=== PATIENT | female | born 1955 | race Caucasian/White ===

== ENCOUNTER 2023-09-07 12:51 | Outpatient (CLI) | payer MEDICARE, SELFPAY | END 2023-09-07 12:52 | disposition home or self-care (01) | PROVIDERS: Visit Provider Emergency Medicine | DX: Z00.00 Encounter for general adult medical examination without abnormal findings (principal); R16.0 Hepatomegaly, not elsewhere classified; Z13.1 Encounter for screening for diabetes mellitus | CPT/HCPCS: 80048; 80076 ==

== ENCOUNTER 2023-09-23 12:13 | Outpatient (CLI) | payer MEDICARE, SELFPAY ==
--- NOTE | 2023-09-23 13:35 | W.ANESCHARGE ---
Anesthesia Charges Start Date/Time Anesthesia Start Date: 09/23/23 Anesthesia Start Time: 13:02 Stop Date/Time Anesthesia Stop Date: 09/23/23 Anesthesia Stop Time: 13:35
--- NOTE | 2023-09-23 15:40 | W.ANESCHARGE ---
Anesthesia Charges Start Date/Time Anesthesia Start Date: 09/23/23 Anesthesia Start Time: 13:02 Stop Date/Time Anesthesia Stop Date: 09/23/23 Anesthesia Stop Time: 13:35
== END 2023-09-23 12:14 | disposition home or self-care (01) ==
LOC: OP CLINIC 12:14
PROVIDERS: PCP Emergency Medicine; Visit Provider Surgery
DX: Z12.11 Encounter for screening for malignant neoplasm of colon (principal); K63.5 Polyp of colon; Z80.0 Family history of malignant neoplasm of digestive organs
CPT/HCPCS: 00811; 45385; 88305; J2704

== ENCOUNTER 2023-10-13 11:33 | Outpatient (CLI) | payer MEDICARE, SELFPAY | END 2023-10-13 11:34 | disposition home or self-care (01) | PROVIDERS: PCP Emergency Medicine; Visit Provider Emergency Medicine | DX: Z11.59 Encounter for screening for other viral diseases (principal); Z13.220 Encounter for screening for lipoid disorders | CPT/HCPCS: 80061; 86803; 87340 ==

== ENCOUNTER 2023-10-22 10:45 | Outpatient (CLI) | payer MEDICARE, SELFPAY ==
--- NOTE | 2023-10-22 11:00 | CT_ITS ---
Patient: MING SUN Facility:?[facility] Patient ID:?[id number] Site Patient ID:?[id number]. Site :?[id number] Study:?CT-Chest LOW DOSE-10/22/2023 11:11:06 AM Ordering Physician:?DR. BACA Final Report: INDICATIONS: Smoking history; low-dose screening chest CT. COMPARISON: None. Technique: Low-dose screening chest CT. FINDINGS: A 5.5 mm noncalcified nodule superior segment right lower lobe slice 122 series 5. A 2 mm noncalcified nodular density right middle lobe slice 143 series 5. No other abnormal pulmonary nodules. No abnormal mediastinal or hilar lymphadenopathy. No evidence of pleural effusion or chest wall pathology. Limited CT through the upper abdomen is unremarkable. IMPRESSION: A 5.5 mm noncalcified nodular density lower lobe right lung and a 2 mm noncalcified nodular density right middle lobe; lung rads category 2; low-dose screening chest CT in 12 months duration is suggested. Please note that all CT scans at this facility use dose modulation, iterative reconstruction, and/or weight-based dosing when appropriate to reduce radiation dose to as low as reasonably achievable. Dictated by Jasmyn Meléndez MD @ 10/29/2023 1:05:09 PM Signed by:?Jasmyn Meléndez MD @10/29/2023 1:05:09 PM (Electronic Signature)
== END 2023-10-22 10:46 | disposition home or self-care (01) ==
LOC: CT 10:45
PROVIDERS: PCP Emergency Medicine; Visit Provider Emergency Medicine
DX: Z12.2 Encounter for screening for malignant neoplasm of respiratory organs (principal); R91.8 Other nonspecific abnormal finding of lung field; F17.210 Nicotine dependence, cigarettes, uncomplicated
CPT/HCPCS: 71271

== ENCOUNTER 2023-12-01 10:58 | Outpatient (CLI) | payer MEDICARE, SELFPAY ==
--- NOTE | 2023-12-01 11:30 | MM_ITS ---
Patient: MING SUN Facility:?[facility] Patient ID:?[id number] Site Patient ID:?[id number] Site :?[id number] Study:?XRay-Breast Bilateral 3D W/CAD-12/01/2023 11:27:50 AM Ordering Physician:?Mima Oneill Final Report: BILATERAL SCREENING MAMMOGRAM WITH COMPUTER-AIDED DETECTION AND TOMOSYNTHESIS TECHNIQUE: CC and MLO views were obtained. These mammographic images have been obtained using full-field digital technique. These mammographic images were interpreted with the benefit of computer-aided detection. Breast Tomosynthesis was used in this interpretation. COMPARISON FILM: Baseline, prior 20+ year ago. FINDINGS: The breasts are heterogeneously dense, which may obscure small masses. IMPRESSION: There is no radiographic evidence for malignancy. ASSESSMENT: BI-RADS Category 1: Negative RECOMMENDATION: Routine screening mammogram in 1 year. A lay language report of this examination will be provided to the patient. Santiago Jim M.D. [email or web address] DSM/sp R& Transcribed: 7:56 p.m SP/Dictated by: Santiago Jim MD @ 12/02/2023 8:59:00 AM Signed by:?Santiago Jim MD @12/02/2023 8:30:00 PM (Electronic Signature)
== END 2023-12-01 10:59 | disposition home or self-care (01) ==
LOC: MAMMO 10:59
PROVIDERS: PCP Emergency Medicine; Visit Provider Emergency Medicine
DX: Z12.31 Encounter for screening mammogram for malignant neoplasm of breast (principal); R92.2 Inconclusive mammogram; Z13.820 Encounter for screening for osteoporosis; M81.0 Age-related osteoporosis without current pathological fracture; Z78.0 Asymptomatic menopausal state
CPT/HCPCS: 77063; 77067; 77080